=== PATIENT | male | born 1970 | race Hispanic/Latino ===

== ENCOUNTER 2022-11-22 06:03 | Emergency (ER) | payer OTHER ==
[2022-11-22] MEDS ORDERED: EPINEPHrine 1 MG/10 ML Abboject SYRINGE ONE (06:17)
== END 2022-11-22 06:20 | disposition expired ==
LOC: ERS 06:03
DX: I46.9 Cardiac arrest, cause unspecified (principal)
CPT/HCPCS: 31500; 92950; J0171